=== PATIENT | male | born 1975 | race Caucasian/White ===

== ENCOUNTER 2018-09-01 11:34 | Emergency (ER) | payer MEDICARE, MEDICAID ==
--- NOTE | 2018-09-01 11:49 | Emergency Department Record ---
History of Present Illness - General Chief Complaint: Laceration(s) Stated Complaint: LEFT HAND FINGER LACS Time Seen by Provider: 09/01/18 11:38 Source: Patient Mode of Arrival: Ambulatory Limitations: No limitations - History of Present Illness Initial Commments: 43 yo male presents with an injury to his left hand. He was working with a cinnamon grinder. He cleaned the fingers that were injured last night and applied an over the counter skin adhesive. No loss of ROM. No numbness or tingling. His tetanus is up to date. He stays home currently. He is right handed. -: Days(s) (1) Extremity Location: Left: Hand Place: Home Context: Accidental Associated Symptoms: None Treatments Prior to Arrival: Bandage, Other - [place] Coma Scale Eye Response: (4) Open spontaneously Motor Response: (6) Obeys commands Verbal Response: (5) Oriented [place] Total: 15 - Related Data Home Medications Medication Instructions Recorded Confirmed Last Taken Albuterol Sulfate [Ventolin Hfa] 2 puff INH Q4H PRN 09/01/18 09/01/18 Unknown Atorvastatin Calcium 20 mg PO DAILY 09/01/18 09/01/18 09/01/18 08:00 Cetirizine HCl 10 mg PO DAILY 09/01/18 09/01/18 09/01/18 08:00 Cyclobenzaprine HCl 10 mg PO QHS PRN 09/01/18 09/01/18 Unknown Fluticasone Propionate [Flonase] 2 applic EACH NARES BID PRN 09/01/18 09/01/18 Unknown Hydrochlorothiazide [Hctz] 12.5 mg PO DAILY 09/01/18 09/01/18 09/01/18 08:00 Hydrochlorothiazide [Hctz] 12.5 mg PO DAILY 09/01/18 09/01/18 09/01/18 08:00 Indomethacin [Indocin] 50 mg PO DAILY PRN 09/01/18 09/01/18 Unknown Lisinopril 40 mg PO DAILY 09/01/18 09/01/18 09/01/18 08:00 Meloxicam 7.5 mg PO DAILY 09/01/18 09/01/18 09/01/18 08:00 Metformin HCl 500 mg PO BID 09/01/18 09/01/18 09/01/18 08:00 Previous Rx's Medication Instructions Recorded Cephalexin [Keflex] 500 mg PO TID #21 cap 09/01/18 Allergies Allergy/AdvReac Type Severity Reaction Status Date / Time Penicillins Allergy DIFFICULTY Verified 09/01/18 11:50 BREATHING trazodone AdvReac ALTERED Verified 09/01/18 11:50 MENTAL STATUS Review of Systems Constitutional: Denies: Chills, Fever, Malaise, Weakness Eyes: Denies: Eye discharge ENT: Denies: Congestion, Throat pain Respiratory: Denies: Cough Cardiovascular: Denies: Chest pain, Syncope Endocrine: Denies: Fatigue Gastrointestinal: Denies: Diarrhea, Nausea, Vomiting Genitourinary: Denies: Dysuria, Frequency Musculoskeletal: Denies: Arthralgia, Back pain Skin: Denies: Bruising, Change in color, Rash Neurological: Denies: Headache Psychiatric: Denies: Anxiety Hematological/Lymphatic: Denies: Easy bleeding, Easy bruising Physical Exam - General General Appearance: Alert, Oriented x3, Cooperative, No acute distress Limitations: No limitations - Head Head exam: Atraumatic - Eye Eye exam: Normal appearance - ENT ENT exam: Normal exam Ear exam: Normal external inspection Nasal Exam: Normal inspection Mouth exam: Normal external inspection - Neck Neck exam: Normal inspection - Cardiovascular Cardiovascular Exam: Regular rate, Normal rhythm, Normal heart sounds Peripheral Pulses: 2+: Radial (L) - Rectal Rectal exam: Deferred - exam: Deferred - Extremities Extremities exam: Full ROM, Normal capillary refill. negative: Joint swelling, Tenderness Image of Hand: 1 - 4mm superficial abrasion 2 - 1cm, irregular superficial skin tear, full ROM, extensor intact, no FB 3 - abrasion lateral to finger, glued, no FB - Neurological Neurological exam: Alert, Oriented X3. negative: Motor sensory deficit - Psychiatric Psychiatric exam: negative: Agitated, Anxious - Skin Skin exam: Abrasion Type of lesion: Laceration Course - Reevaluation(s) Reevaluation #1: The patient was seen and examined He has intact sensation and ROM of the fingers Full extension without pain or limitation The wounds were soaked and cleaned We discussed that a delayed closure of this type of injury has some risk of infection XR ordered 09/01/18 11:50 09/01/18 13:47 XR reviewed. Small radio opaque FB noted in first and second digits proximally. No injuries are clinically in this area. 09/01/18 13:49 The wounds were steristripped and the ring finger splinted in extension to avoid tension on the wound Disposition Disposition: Discharge Clinical Impression: Finger laceration Disposition: Home, Self-Care Condition: (1) Good Instructions: Laceration (ED) Additional Instructions: Leave the steristrips on for 5-7 days Return if you have pain, redness, pus or concerns with the healing. Prescriptions: Cephalexin [Keflex] 500 mg PO TID #21 cap Forms: Patient Portal Access Time of Disposition: 12:27 Quality - Quality Measures Quality Measures: N/A - Blood Pressure Screening Does Patient Have Any of the Following: No Blood Pressure Classification: Pre-Hypertensive BP Reading Systolic Measurement: 127 Diastolic Measurement: 75 Screening for High Blood Pressure: < Pre-Hypertensive BP, F/U Documented > [ G8950] Pre-Hypertensive Follow-up Interventions: Referral to alternative/primary care provider.
--- NOTE | 2018-09-02 07:41 | RADIOLOGY REPORT ---
EXAM: LEFT HAND HISTORY: PAIN. TECHNIQUE: Three views of the left hand were performed. FINDINGS: No evidence of fracture or dislocation. No lytic or blastic lesion. There are small linear radiopaque foreign bodies in the second and third digits adjacent to the proximal interphalangeal joint spaces. IMPRESSION: SMALL LINEAR RADIOPAQUE FOREIGN BODIES IN THE SOFT TISSUES OF THE SECOND AND THIRD DIGITS AT THE PROXIMAL INTERPHALANGEAL JOINT SPACE. JOB NUMBER: [id number] MTDD
== END 2018-09-01 12:44 | disposition home or self-care (01) ==
LOC: ER 11:34
DX: S60.411A Abrasion of left index finger, initial encounter (principal); S60.413A Abrasion of left middle finger, initial encounter; S60.415A Abrasion of left ring finger, initial encounter; I10 Essential (primary) hypertension; W31.89XA Contact with other specified machinery, initial encounter; Y92.009 Unspecified place in unspecified non-institutional (private) residence as the place of occurrence of the external cause
CPT/HCPCS: 99283; 99284

== ENCOUNTER 2019-04-04 19:00 | Emergency (ER) | payer MEDICARE, MEDICAID ==
[2019-04-04] MEDS ORDERED: KETOROLAC 60 MG/2 ML VIAL IM STA (19:45)
--- NOTE | 2019-04-04 19:51 | Emergency Department Record ---
History of Present Illness - General Stated Complaint: BACK AND SHOULDER PAIN Time Seen by Provider: 04/04/19 19:45 Source: Patient Mode of Arrival: Ambulatory Limitations: No limitations - History of Present Illness Initial comments: 43 yo male presents to ED for evaluation of low back and right shoulder pain due to injuries "a long tome ago". Patient denies new or recurrent injury, denies taking anything for his pain symptoms at home. Patient denies focal weakness/deficits resulting from his pain symptoms, denies health problems at his baseline. MD Complaint: Pain -: Days(s) Location: Right, Upper extremity, Back Radiation: Non-Radiating Quality: Aching Consistency: Constant Improves with: None Worsens with: Movement Associated Symptoms: Denies other symptoms Treatments Prior to Arrival: None - [place] Coma Scale Eye Response: (4) Open spontaneously Motor Response: (6) Obeys commands Verbal Response: (5) Oriented [place] Total: 15 - Related Data Allergies Allergy/AdvReac Type Severity Reaction Status Date / Time Penicillins Allergy DIFFICULTY Verified 04/04/19 19:52 BREATHING trazodone AdvReac ALTERED Verified 04/04/19 19:52 MENTAL STATUS Review of Systems Constitutional: Denies: Chills, Fever, Malaise, Night sweats Eyes: Denies: Eye discharge, Eye pain ENT: Denies: Congestion, Ear pain, Epistaxis Respiratory: Denies: Cough, Dyspnea Cardiovascular: Denies: Chest pain, Dyspnea on exertion Endocrine: Denies: Fatigue, Heat or cold intolerance Gastrointestinal: Denies: Abdominal pain, Nausea, Vomiting Genitourinary: Denies: Incontinence, Retention Musculoskeletal: Reports: Arthralgia, Back pain. Denies: Joint swelling, Myalgia Skin: Denies: Bruising, Change in color, Change in hair/nails Neurological: Denies: Abnormal gait, Confusion, Headache, Tingling, Tremors Psychiatric: Denies: Anxiety Hematological/Lymphatic: Denies: Anemia, Blood Clots Past Medical History - SOCIAL HISTORY Smoking Status: Never smoker Drug Use: None - RESPIRATORY Hx Respiratory Disorders: No - CARDIOVASCULAR Hx Hypertension: Yes Hx Irregular Heartbeat: Yes (murmur) - GI Hx GI Disorders: No - Hx Genitourinary Disorders: No - ENDOCRINE Hx Endocrine Disorders: Yes Hx Diabetes: Yes Hx Thyroid Disease: No - MUSCULOSKELETAL Hx Musculoskeletal Disorders: Yes Hx Arthritis: Yes Hx Gout: Yes - PSYCH Hx Psych Problems: No - HEMATOLOGY/ONCOLOGY Hx Hematology/Oncology Disorders: No Family Medical History Hx Cancer: Father, Mother, Brother/Sister Hx Heart Disease: Father, Mother, Grandparents Hx HTN: Father, Mother, Grandparents Physical Exam - General General Appearance: Alert, Oriented x3, Cooperative, No acute distress, Other (On mobiel phone, sitting upright in no distress.) Limitations: No limitations - Head Head exam: Atraumatic, Normocephalic, Normal inspection Head exam detail: negative: Abrasion, Contusion, Solomon's sign, General tenderness, Hematoma, Laceration - Eye Eye exam: Other (Disconjugate gaze is present on examination.). negative: Conjunctival injection, Periorbital swelling, Periorbital tenderness - ENT Ear exam: negative: Auricular hematoma, Auricular trauma Nasal Exam: negative: Active bleeding, Discharge, Dried blood, Foreign body Mouth exam: negative: Drooling, Laceration, Muffled voice, Tongue elevation - Neck Neck exam: Normal inspection. negative: Meningismus, Tenderness - Respiratory Respiratory exam: Normal lung sounds bilaterally. negative: Respiratory distress, Rhonchi, Stridor, Wheezes - Cardiovascular Cardiovascular Exam: Regular rate, Normal rhythm, Normal heart sounds - GI/Abdominal GI/Abdominal exam: Soft. negative: Distended, Rebound, Rigid, Tenderness - Rectal Rectal exam: Deferred - exam: Deferred - Extremities Extremities exam: Full ROM, Other (Essentially normal examination of the right shoulder). negative: Calf tenderness, Pedal edema, Tenderness - Back Back exam: Denies: CVA tenderness (R), CVA tenderness (L) - Neurological Neurological exam: Alert, Normal gait, Oriented X3 - Psychiatric Psychiatric exam: Normal affect, Normal mood - Skin Skin exam: Normal color. negative: Abrasion Type of lesion: negative: abrasion Course Vital Signs 04/04/19 19:37 Temperature 98.6 F Pulse Rate [ 80 Pulse Ox Probe] Respiratory 20 Rate Blood Pressure 110/67 [Left Arm] Pulse Ox 97 - Reevaluation(s) Reevaluation #1: 04/04/19 20:21 Patient was reassessed, reports that he is feeling much improved. Patient appears stable for discharge at this time with Ibuprofen 600 mg as directed for his pain symptoms. Disposition Disposition: Discharge Clinical Impression: Arthralgia of back Disposition: Home, Self-Care Condition: (2) Stable Instructions: Arthralgia (ED) Additional Instructions: Return to ED if your symptoms worsen or if you have any concerns. Motrin 600 mg as directed for pain symptoms. Follow-up with your family doctor in 3-5 days as directed. Time of Disposition: 20:22 Quality - Quality Measures Quality Measures: N/A - Blood Pressure Screening Does Patient Have Any of the Following: No Blood Pressure Classification: Normal BP Reading Systolic Measurement: 110 Diastolic Measurement: 67 Screening for High Blood Pressure: < Normal BP, F/U Not Required > [G8783]
== END 2019-04-04 20:45 | disposition home or self-care (01) ==
LOC: ER 19:00
DX: M54.5 Low back pain (principal); I10 Essential (primary) hypertension; E11.9 Type 2 diabetes mellitus without complications
CPT/HCPCS: 96372; 99283; J1885

== ENCOUNTER 2019-08-01 18:41 | Emergency (ER) | payer MEDICARE, MEDICAID ==
--- NOTE | 2019-08-01 18:57 | Emergency Department Record ---
History of Present Illness - General Chief complaint: ENT Stated complaint: SINUS CONGESTION,COUGH Time Seen by Provider: 08/01/19 18:53 Source: Patient Mode of Arrival: Ambulatory Limitations: No limitations - History of Present Illness Initial comments: 44 yo male presents to ED for evaluation of sinus pressure and congestion symptoms for the past 3 weeks. [place] see his PCP for his symptoms, reports that he was prescribed a medication that he could not afford (cost $20.00 per patient), patient is unsure what the medication is. Patient denies fevers, chills, cough, or sore throat symptoms on examination. MD complaint: Other (Sinus pressure/pain) Onset/Timin -: Week(s) Severity: Moderate Quality: Aching Consistency: Constant Improves with: None Worsens with: None - Related Data Previous Rx's Medication Instructions Recorded Doxycycline Hyclate 100 mg PO BID #20 cap 08/01/19 Allergies Allergy/AdvReac Type Severity Reaction Status Date / Time Penicillins Allergy DIFFICULTY Verified 08/01/19 18:49 BREATHING trazodone AdvReac ALTERED Verified 08/01/19 18:49 MENTAL STATUS Review of Systems Constitutional: Denies: Chills, Fever, Malaise, Night sweats Eyes: Denies: Eye discharge, Eye pain ENT: Reports: Other (Sinus pressure/pain). Denies: Congestion, Ear pain, Epistaxis Respiratory: Denies: Cough, Dyspnea Cardiovascular: Denies: Chest pain, Dyspnea on exertion Endocrine: Denies: Fatigue, Heat or cold intolerance Gastrointestinal: Denies: Abdominal pain, Nausea, Vomiting Genitourinary: Denies: Incontinence, Retention Musculoskeletal: Denies: Arthralgia, Back pain Skin: Denies: Bruising, Change in color Neurological: Denies: Abnormal gait, Confusion, Headache, Tingling, Tremors Psychiatric: Denies: Anxiety Hematological/Lymphatic: Denies: Anemia, Blood Clots Past Medical History - SOCIAL HISTORY Smoking Status: Never smoker Drug Use: None - RESPIRATORY Hx Respiratory Disorders: No - CARDIOVASCULAR Hx Hypertension: Yes Hx Irregular Heartbeat: Yes (murmur) - NEURO Hx Neuro Disorders: No - GI Hx GI Disorders: No - Hx Genitourinary Disorders: No - ENDOCRINE Hx Endocrine Disorders: Yes Hx Diabetes: Yes Hx Thyroid Disease: No - MUSCULOSKELETAL Hx Musculoskeletal Disorders: Yes Hx Arthritis: Yes Hx Gout: Yes - PSYCH Hx Psych Problems: No - HEMATOLOGY/ONCOLOGY Hx Hematology/Oncology Disorders: No Family Medical History Hx Cancer: Father, Mother, Brother/Sister Hx Heart Disease: Father, Mother, Grandparents Hx HTN: Father, Mother, Grandparents Physical Exam - General General Appearance: Alert, Oriented x3, Cooperative Limitations: No limitations - Head Head exam: Atraumatic, Normocephalic, Normal inspection Head exam detail: negative: Abrasion, Contusion, Solomon's sign, General tenderness, Hematoma, Laceration - Eye Eye exam: Normal appearance. negative: Conjunctival injection, Periorbital swelling, Periorbital tenderness, Scleral icterus - ENT Ear exam: negative: Auricular hematoma, Auricular trauma Nasal Exam: Sinus tenderness (Pain with palpation to the maxillary sinus). negative: Active bleeding, Discharge, Dried blood Mouth exam: negative: Drooling, Laceration, Muffled voice, Tongue elevation - Neck Neck exam: Normal inspection. negative: Meningismus, Tenderness - Respiratory Respiratory exam: Normal lung sounds bilaterally. negative: Respiratory distress, Rhonchi, Stridor, Wheezes - Cardiovascular Cardiovascular Exam: Regular rate, Normal rhythm, Normal heart sounds - GI/Abdominal GI/Abdominal exam: Soft. negative: Distended, Rebound, Rigid, Tenderness - Rectal Rectal exam: Deferred - exam: Deferred - Extremities Extremities exam: Normal inspection. negative: Pedal edema, Tenderness - Back Back exam: Denies: CVA tenderness (R), CVA tenderness (L) - Neurological Neurological exam: Alert, Normal gait, Oriented X3 - Psychiatric Psychiatric exam: Normal affect, Normal mood - Skin Skin exam: Normal color. negative: Abrasion Type of lesion: negative: abrasion Course - Reevaluation(s) Reevaluation #1: 08/01/19 19:01 History and examination appears c/w sinusitis Will treat with Doxycycline due to PCN allergy. Patient appears stable for discharge at this time. Disposition Disposition: Discharge Clinical Impression: Sinusitis Qualifiers: Sinusitis location: maxillary Chronicity: subacute Qualified Code(s): J01.00 - Acute maxillary sinusitis, unspecified Disposition: Home, Self-Care Condition: (2) Stable Instructions: Sinusitis (ED) Additional Instructions: Return to ED if your symptoms worsen or if you have any concerns. Amoxicillin as directed. Follow-up with your family doctor in 3-5 days as directed. Prescriptions: Doxycycline Hyclate 100 mg PO BID #20 cap Forms: Patient Portal Access Time of Disposition: 18:56 Quality - Quality Measures Quality Measures: N/A - Blood Pressure Screening Does Patient Have Any of the Following: No Blood Pressure Classification: Hypertensive Reading Systolic Measurement: 156 Diastolic Measurement: 111 Screening for High Blood Pressure: < First Hypertensive BP, F/U Documented > [G8950] First Hypertensive Follow-up Interventions: Referral to alternative/primary care provider.
== END 2019-08-01 19:03 | disposition home or self-care (01) ==
LOC: ER 18:41
DX: J01.00 Acute maxillary sinusitis, unspecified (principal); I10 Essential (primary) hypertension; R05 Cough
CPT/HCPCS: 99283

== ENCOUNTER 2019-08-13 17:37 | Emergency (ER) | payer MEDICARE, MEDICAID ==
[2019-08-13] MEDS ORDERED: KETOROLAC 30 MG/ML VIAL IM ONE (18:35)
--- NOTE | 2019-08-13 18:36 | Emergency Department Record ---
History of Present Illness - General Chief Complaint: Fall Injury Stated Complaint: FELL BACK/LT SIDE PAIN Time Seen by Provider: 08/13/19 18:23 Source: Patient Mode of Arrival: Ambulatory Limitations: No limitations - History of Present Illness Initial Comments: The patient is here due to L lower back pain for 2 days. He was walking and slipped on some ice and tripped down 2 stairs and twisted his back as he fell. He may have landed on his back and now has L lower back pain. The patient denies any radiation of the pain down the legs and no leg numbness, weakness, or any bowel or bladder issues. The pain is much worse with any movement and walking. There also has been no AP, dysuria, or fevers. MD Complaint: Fall Onset/Timin -: Days(s) - Related Data Previous Rx's Medication Instructions Recorded Naproxen [Naprosyn] 500 mg PO BID #14 tablet. 08/13/19 Allergies Allergy/AdvReac Type Severity Reaction Status Date / Time Penicillins Allergy DIFFICULTY Verified 08/13/19 18:40 BREATHING trazodone AdvReac ALTERED Verified 08/13/19 18:40 MENTAL STATUS Review of Systems Constitutional: Denies: Chills, Fever Eyes: Denies: Eye discharge ENT: Denies: Congestion Respiratory: Denies: Cough, Dyspnea Past Medical History - SOCIAL HISTORY Smoking Status: Never smoker Drug Use: None - RESPIRATORY Hx Respiratory Disorders: No - CARDIOVASCULAR Hx Hypertension: Yes Hx Irregular Heartbeat: Yes (murmur) - NEURO Hx Neuro Disorders: No - GI Hx GI Disorders: No - Hx Genitourinary Disorders: No - ENDOCRINE Hx Endocrine Disorders: Yes Hx Diabetes: Yes Hx Thyroid Disease: No - MUSCULOSKELETAL Hx Musculoskeletal Disorders: Yes Hx Arthritis: Yes Hx Gout: Yes - PSYCH Hx Psych Problems: No - HEMATOLOGY/ONCOLOGY Hx Hematology/Oncology Disorders: No Family Medical History Hx Cancer: Father, Mother, Brother/Sister Hx Heart Disease: Father, Mother, Grandparents Hx HTN: Father, Mother, Grandparents Physical Exam - General General Appearance: Alert, Oriented x3, Cooperative, No acute distress (The patient is presently actively texting on his phone sitting on a chair appearing very comfortable at this time.) - Head Head exam: Atraumatic, Normocephalic, Normal inspection - Eye Eye exam: Normal appearance, PERRL - Neck Neck exam: Normal inspection, Full ROM. negative: Tenderness - Respiratory Respiratory exam: Normal lung sounds bilaterally. negative: Respiratory dis tress - Cardiovascular Cardiovascular Exam: Regular rate, Normal rhythm, Normal heart sounds - GI/Abdominal GI/Abdominal exam: Soft, Normal bowel sounds. negative: Rebound, Rigid, Tenderness - Extremities Extremities exam: Normal inspection, Full ROM, Normal capillary refill. nega tive: Tenderness - Back Back exam: Reports: Normal inspection. Denies: CVA tenderness (R), CVA tenderness (L), Muscle spasm, Paraspinal tenderness, Vertebral tenderness - Neurological Neurological exam: Alert, Normal gait, Oriented X3, Reflexes normal, Other (Neg SLR bilaterlly.). negative: Abnormal gait, Altered, Motor sensory deficit Course Vital Signs 08/13/19 18:15 Temperature 97.9 F Pulse Rate [ 78 Pulse Ox Probe] Respiratory 20 Rate Blood Pressure 143/103 [Left Arm] Pulse Ox 96 - Reevaluation(s) Reevaluation #1: The patient is doing better at this time. He is up walking with no difficulty and is able to twist and bend with no issues. I did explain to the patient that the xrays are normal. We will discharge the patient on Naprosyn and he is to see his PCP next week for recheck. 08/13/19 19:18 Medical Decision Making - Radiology Data Radiology results: Report reviewed (LS Spine: Neg per Rad.) Disposition Disposition: Discharge Clinical Impression: Lumbar strain Qualifiers: Encounter type: initial encounter Qualified Code(s): S39.012A - Strain of muscle, fascia and tendon of lower back, initial encounter Disposition: Home, Self-Care Condition: (2) Stable Instructions: Low Back Strain (ED) Additional Instructions: Please rest and take naprosyn for pain. Please see your doctor for recheck this week. Return to the ER for any worsening issues. Prescriptions: Naproxen [Naprosyn] 500 mg PO BID #14 tablet.dr Forms: Patient Portal Access Time of Disposition: 19:21 Quality - Quality Measures Quality Measures: N/A - Blood Pressure Screening View Details: Yes Does Patient Have Any of the Following: No Blood Pressure Classification: Hypertensive Reading Systolic Measurement: 143 Diastolic Measurement: 103 Screening for High Blood Pressure: < First Hypertensive BP, F/U Documented > [G 8950] First Hypertensive Follow-up Interventions: Referral to alternative/primary care provider.
--- NOTE | 2019-08-13 19:14 | RADIOLOGY REPORT ---
EXAMINATION: Lumbar Spine Two or Three Views EXAM DATE: 08/13/2019 7:06 PM INDICATION: low back pain fall yesterday ENCOUNTER: Initial FINDINGS: Mild degenerative disc disease and minimal scoliosis. No acute abnormality Dictated by: Jovani Zavala MD on 08/13/2019 7:10 PM. .
== END 2019-08-13 19:30 | disposition home or self-care (01) ==
LOC: ER 17:37
DX: S39.012A Strain of muscle, fascia and tendon of lower back, initial encounter (principal); W00.0XXA Fall on same level due to ice and snow, initial encounter; E11.9 Type 2 diabetes mellitus without complications; I10 Essential (primary) hypertension
CPT/HCPCS: 99284 ×2; 96372; 72100; J1885